=== PATIENT | female | born 1995 | race African-American/Black ===

== ENCOUNTER 2019-09-26 21:04 | Emergency (ER) | payer OTHER ==
[~2019-09-26] VITALS: Ht 157.5 cm; Wt 56.8 kg
[2019-09-26 21:04] VITALS: BP 128/70
[2019-09-26] MEDS ORDERED: PSEUDOEPHEDRINE 30 MG TAB PO STA (22:44)
[2019-09-26] MEDS ORDERED: GI COCKTAIL 50ML BTL(HYOSCYAMINE/MAALOX/LIDOCAINE VISCOUS)(1:3:1) PO ONE (22:45)
[2019-09-26] MEDS ORDERED: BENZONATATE 100 MG CAP PO ONE (22:45)
[2019-09-26] MEDS ORDERED: ALBUTEROL SULFATE 2.5 MG/0.5 ML INH NEB SOLN NEB ONE (22:45)
[2019-09-26] MEDS ORDERED: IBUPROFEN 600 MG TAB PO ONE (22:45)
[2019-09-26 22:48] LABS: INFLUENZA A AMPLIFICATION NEGATIVE (NEGATIVE); INFLUENZA B AMPLIFICATION NEGATIVE (NEGATIVE)
[2019-09-26] MEDS ORDERED: TESS100C PO (23:34)
[2019-09-26] MEDS ORDERED: PROAAER10 INH (23:34)
[2019-09-26] MEDS ORDERED: MAGICMW SSP (23:34)
[2019-09-26] MEDS ORDERED: IBUP-1022 PO (23:34)
[2019-09-26] MEDS ORDERED: PSEU120T19 PO (23:34)
--- NOTE | 2019-09-27 07:01 | REP ---
Clinical: Cough and shortness of breath . Comparison: None . Technique: PA and lateral. Findings: The mediastinum and cardiac silhouette are normal. The lung stallworth are clear and without acute consolidation, effusion, or pneumothorax. The skeletal structures are intact and normal. Impression: 1. No acute cardiopulmonary process. Electronically Signed by John Espino MD 09/27/2019 06:52 A
== END 2019-09-26 23:42 | disposition home or self-care (01) ==
LOC: M ED 21:04
DX: J06.9 Acute upper respiratory infection, unspecified (principal); R05 Cough; R06.02 Shortness of breath; R07.0 Pain in throat; R09.81 Nasal congestion

== ENCOUNTER 2019-11-21 14:14 | Emergency (ER) | payer OTHER ==
[~2019-11-21] VITALS: Ht 157.5 cm; Wt 61.3 kg
[~2019-11-21 14:14] MED LIST: IBUP-1022 PO; MAGICMW SSP; PROAAER10 INH; PSEU120T19 PO; TESS100C PO
[2019-11-21 16:48] LABS: INFLUENZA A AMPLIFICATION NEGATIVE (NEGATIVE); INFLUENZA B AMPLIFICATION POSITIVE (NEGATIVE)
[2019-11-21] MEDS ORDERED: ONDA4TAB6 PO (18:31)
[2019-11-21] MEDS ORDERED: BENZ200C70 PO (18:31)
[2019-11-21 19:03] VITALS: BP 120/73
== END 2019-11-21 19:08 | disposition home or self-care (01) ==
LOC: M ED 14:14
DX: J10.1 Influenza due to other identified influenza virus with other respiratory manifestations (principal); R30.0 Dysuria

== ENCOUNTER 2020-04-01 16:22 | Emergency (ER) | payer OTHER ==
[~2020-04-01] VITALS: Ht 157.5 cm; Wt 65.7 kg
[~2020-04-01 16:22] MED LIST changes: +BENZ200C70 PO; +ONDA4TAB6 PO
[2020-04-01] MEDS ORDERED: ACET1TAB55 PO (16:29)
[2020-04-01] MEDS ORDERED: TRAZ-252 PO (16:29)
[2020-04-01] MEDS ORDERED: diphenhydrAMINE 50MG/ML VIAL (J1200) IV STA (17:50)
[2020-04-01] MEDS ORDERED: NS 1,000 ML IV ONE (18:00)
[2020-04-01] MEDS ORDERED: METOCLOPRAMIDE INJ 10MG/2ML VIAL (J2765 PER 1) IV ONE (18:00)
[2020-04-01] MEDS ORDERED: KETOROLAC 30 MG/ML 1ML VIAL IV ONE (18:00)
[2020-04-01 18:19] LABS: BASO % 0.3 % (0.0-1.0); EOS # 0.2 10^3/uL (0.0-0.5); HEMATOCRIT 38.6 % (36.0-47.0); HEMOGLOBIN 11.8 g/dl (12.0-15.5); LYMPH # 2.2 10^3/uL (1.5-5.0); LYMPH % 38.2 % (24.0-44.0); MEAN CORPUSCULAR HEMOGLOBIN 25.2 pg (27.0-33.0); MEAN CORPUSCULAR HGB CONC 30.6 g/dl (32.0-36.5); MEAN CORPUSCULAR VOLUME 82.5 fl (80.0-96.0); MONO # 0.5 10^3/uL (0.0-0.8); MONO % 9.4 % (0.0-5.0); NEUTROPHILS # 2.8 10^3/uL (1.5-8.5); NEUTROPHILS % 48.9 % (36.0-66.0); PLATELET COUNT, AUTOMATED 223 10^3/uL (150-450); RED BLOOD COUNT 4.68 10^6/uL (4.00-5.40); WHITE BLOOD COUNT 5.8 10^3/uL (4.0-10.0)
--- NOTE | 2020-04-01 19:16 | REPVR ---
PROCEDURE INFORMATION: Exam: CT Head Without Contrast Exam date and time: 04/01/2020 6:49 PM Age: 25 years old Clinical indication: Pain; Headache; Additional info: KRISHNAN x 2wks constant, severe TECHNIQUE: Imaging protocol: Computed tomography of the head without contrast. Radiation optimization: All CT scans at this facility use at least one of these dose optimization techniques: automated exposure control; mA and/or kV adjustment per patient size (includes targeted exams where dose is matched to clinical indication); or iterative reconstruction. COMPARISON: No relevant prior studies available. FINDINGS: Brain: Normal. No hemorrhage. Unremarkable white matter. No mass effect. Ventricles: Normal. No ventriculomegaly. Bones/joints: Unremarkable. No acute fracture. Sinuses: Visualized sinuses are unremarkable. No fluid levels. Mastoid air cells: Visualized mastoid air cells are well aerated. Soft tissues: Unremarkable. IMPRESSION: No acute intracranial abnormality. Electronically signed by: Mason Kovacs On 04/01/2020 19:16:22 PM
[2020-04-01 19:55] VITALS: BP 118/61
== END 2020-04-01 19:57 | disposition home or self-care (01) ==
LOC: M ED 16:22
DX: R51 Headache (principal); H53.149 Visual discomfort, unspecified; Z79.899 Other long term (current) drug therapy
CPT/HCPCS: 36415; 70450; 80047; 84702; 85025; 96361; 96374; 96375; 99284; J1200; J1885; J2765

== ENCOUNTER 2020-04-16 00:43 | Emergency (ER) | payer OTHER ==
[~2020-04-16] VITALS: Ht 157.5 cm; Wt 65.2 kg
[~2020-04-16 00:43] MED LIST changes: +ACET1TAB55 PO; +TRAZ-252 PO
[2020-04-16] MEDS ORDERED: ONDANSETRON 4MG/2ML VIAL IV ONE (01:15)
[2020-04-16] MEDS ORDERED: KETOROLAC 30 MG/ML 1ML VIAL IM ONE (01:15)
[2020-04-16] MEDS ORDERED: dexameTHASONE 4 MG/ML 1ML VIAL (J1100 PER 1MG) IV ONE (01:15)
[2020-04-16] MEDS ORDERED: NS 1,000 ML IV ONE (01:15)
[2020-04-16] MEDS ORDERED: ACETAMINOPHEN 500 MG TAB PO ONE (02:00)
[2020-04-16] MEDS ORDERED: METOCLOPRAMIDE INJ 10MG/2ML VIAL (J2765 PER 1) IV ONE (02:15)
[2020-04-16 03:30] VITALS: BP 138/88
== END 2020-04-16 04:45 | disposition home or self-care (01) ==
LOC: M ED 00:43
DX: G43.909 Migraine, unspecified, not intractable, without status migrainosus (principal); Z82.0 Family history of epilepsy and other diseases of the nervous system; Z79.899 Other long term (current) drug therapy
CPT/HCPCS: 96361; 96372; 96374; 96375; 99284; J1100; J1885; J2405

== ENCOUNTER 2020-05-30 11:18 | Emergency (ER) | payer OTHER ==
[~2020-05-30] VITALS: Ht 157.5 cm; Wt 65.9 kg
[2020-05-30] MEDS ORDERED: AMIT50TA PO (11:39)
[2020-05-30 11:58] LABS: BASO % 0.3 % (0.0-1.0); EOS # 0.1 10^3/uL (0.0-0.5); EOS % 1.5 % (0.0-3.0); HEMATOCRIT 36.6 % (36.0-47.0); HEMOGLOBIN 11.5 g/dl (12.0-15.5); LYMPH % 13.8 % (24.0-44.0); MEAN CORPUSCULAR HEMOGLOBIN 25.4 pg (27.0-33.0); MEAN CORPUSCULAR HGB CONC 31.4 g/dl (32.0-36.5); MEAN CORPUSCULAR VOLUME 80.8 fl (80.0-96.0); MONO # 0.6 10^3/uL (0.0-0.8); MONO % 8.4 % (0.0-5.0); NEUTROPHILS # 5.6 10^3/uL (1.5-8.5); NEUTROPHILS % 75.9 % (36.0-66.0); PLATELET COUNT, AUTOMATED 227 10^3/uL (150-450); RED BLOOD COUNT 4.53 10^6/uL (4.00-5.40); WHITE BLOOD COUNT 7.3 10^3/uL (4.0-10.0)
[2020-05-30] MEDS ORDERED: KETOROLAC 30 MG/ML 1ML VIAL IV ONE (12:15)
[2020-05-30 12:17] LABS: ALBUMIN 3.7 GM/DL (3.2-5.2); ALT/SGPT 20 U/L (12-78); BILIRUBIN,DIRECT < 0.1 MG/DL (0.0-0.2); BILIRUBIN,TOTAL 0.2 MG/DL (0.2-1.0); LIPASE 100 U/L (73-393); TOTAL PROTEIN 7.4 GM/DL (6.4-8.2)
[2020-05-30 12:30] VITALS: BP 122/81
[2020-05-30 13:42] LABS: CHLAMYDIA DNA AMPLIFICATION NEGATIVE (NEGATIVE); GC DNA AMPLIFICATION NEGATIVE (NEGATIVE)
== END 2020-05-30 13:10 | disposition home or self-care (01) ==
LOC: M ED 11:18 → EDBD 11:18 → M ED 13:10
DX: N92.1 Excessive and frequent menstruation with irregular cycle (principal); R10.9 Unspecified abdominal pain; R51 Headache
CPT/HCPCS: 80047; 80076; 83690; 84702; 85025; 87210; 87491; 87591; 93041; 96374; 99285; J1885